=== PATIENT | male | born 1970 | race Caucasian/White ===

== ENCOUNTER 2018-06-04 10:53 | Day surgery (SDC) | payer MEDICARE, MEDICAID ==
[2018-06-04] VITALS (14 sets, daily range): BP systolic 125–147; BP diastolic 38–63
[~2018-06-04] VITALS: Ht 160 cm; Wt 58.3 kg
[~2018-06-04 10:53] MED LIST: ALBU0.63 NEB; ASPI81TA52 PO; ATOR80TA PO; BECL7.3A INH; CLOP75TA35 PO; EZET10TA13 PO; INSU100V5 IJ; KEN0.1O TP; LEVE500T PO; NITR0.4T48 SL; NPH,100V SQ; SEVE800T8 PO
[2018-06-04] MEDS ORDERED: normal saline 1000ml 1,000 ML IV PRN (11:20)
[2018-06-04 12:10] LABS: BASOPHILS # (AUTO) 0.1 X10'3 (0-0.2); BASOPHILS % (AUTO) 0.9 % (0-1); EOSINOPHILS # (AUTO) 0.1 X10'3 (0-0.9); EOSINOPHILS % (AUTO) 1.9 % (0-6); HEMATOCRIT 40.7 % (42.0-52.0); HEMOGLOBIN 13.6 g/dl (14.0-17.9); LYMPHOCYTES # (AUTO) 1.9 X10'3 (1.1-4.8); LYMPHOCYTES % (AUTO) 27.8 % (21-51); MEAN CORPUSCULAR HEMOGLOBIN 32.8 PG (27.0-31.0); MEAN CORPUSCULAR HGB CONC 33.5 % (33.0-36.5); MEAN CORPUSCULAR VOLUME 97.9 FL (78-98); MEAN PLATELET VOLUME 10.8 FL (7.4-10.4); MONOCYTES # (AUTO) 0.6 X10'3 (0-0.9); MONOCYTES % (AUTO) 8.7 % (2-12); NEUTROPHILS # (AUTO) 4.1 X10'3 (1.8-7.7); NEUTROPHILS % (AUTO) 60.7 % (42-75); PLATELET COUNT 192 X10'3 (140-440); RED BLOOD COUNT 4.15 X10'6 (4.70-6.10); RED CELL DISTRIBUTION WIDTH 14.6 % (11.5-14.5); WHITE BLOOD COUNT 6.7 X10'3 (4.5-11.0)
[2018-06-04 12:25] LABS: ANION GAP 14 (8-16); BLOOD UREA NITROGEN 43 MG/DL (7-18); BUN/CREATININE RATIO 4.4 (5.4-32.0); CALCIUM 9.6 MG/DL (8.5-10.1); CHLORIDE 95 MMOL/L (99-107); CREATININE 9.88 MG/DL (0.60-1.10); GLUCOSE 223 MG/DL (70-104); POTASSIUM 5.6 MMOL/L (3.5-5.1); SODIUM 138 MMOL/L (135-145); eGFR 6 ML/MIN
[2018-06-04] MEDS ORDERED: heparin 1,000 UNITS/NS 500ml 500 ML ICATH ONE (12:45)
[2018-06-04] MEDS ORDERED: midazolam 2 mg/2 ml injection IV PRN (12:45)
[2018-06-04] MEDS ORDERED: fentaNYL/PF 50MCG/1 ML 2ML syringe IV PRN (12:45)
[2018-06-04] MEDS ORDERED: LIDOcaine 1%/PF 5ML 10 MG/ML VIAL SQ ONE (12:45)
[2018-06-04 12:56] LABS: PLATELET ESTIMATE NORMAL; PROTHROMBIN TIME 10.7 SECONDS (9.0-12.0)
[2018-06-04 12:58] LABS: LARGE PLATELETS FEW
[2018-06-04] MEDS ORDERED: LIDOcaine 1%/PF 5ML 10 MG/ML VIAL ONE (13:05)
[2018-06-04] MEDS ORDERED: iohexol 300mg/ml 100ml inj. ONE (13:05)
[2018-06-04] MEDS ORDERED: midazolam 2 mg/2 ml injection ONE (13:07)
[2018-06-04] MEDS ORDERED: heparin 1,000 UNITS/NS 500ml 500 ML ONE (13:07)
[2018-06-04] MEDS ORDERED: fentaNYL/PF 50MCG/1 ML 2ML syringe ONE (13:07)
== END 2018-06-04 15:50 | disposition home or self-care (01) ==
LOC: SSTAY O 10:53
PROVIDERS: ATTEND Radiology Vascular & Interventional Radiology
DX: T82.858A Stenosis of other vascular prosthetic devices, implants and grafts, initial encounter (principal); Y83.2 Surgical operation with anastomosis, bypass or graft as the cause of abnormal reaction of the patient, or of later complication, without mention of misadventure at the time of the procedure; Y92.89 Other specified places as the place of occurrence of the external cause; E10.22 Type 1 diabetes mellitus with diabetic chronic kidney disease; I12.0 Hypertensive chronic kidney disease with stage 5 chronic kidney disease or end stage renal disease; N18.6 End stage renal disease; I25.10 Atherosclerotic heart disease of native coronary artery without angina pectoris; E78.5 Hyperlipidemia, unspecified; J45.998 Other asthma; Z99.2 Dependence on renal dialysis; Z79.4 Long term (current) use of insulin; Z86.74 Personal history of sudden cardiac arrest; Z86.19 Personal history of other infectious and parasitic diseases; Z95.5 Presence of coronary angioplasty implant and graft; Z87.891 Personal history of nicotine dependence; Z86.73 Personal history of transient ischemic attack (TIA), and cerebral infarction without residual deficits; Z79.82 Long term (current) use of aspirin; Z86.69 Personal history of other diseases of the nervous system and sense organs; Z98.890 Other specified postprocedural states; Z79.899 Other long term (current) drug therapy
CPT/HCPCS: 36415; 36902; 80048; 82948; 85025; 85610; 99152; 99153; C1725; C1769; C1894; J1644; J2001; J2250; J3010; J7030; Q9967; A4620